=== PATIENT | male | born 1975 | race Caucasian/White ===

== ENCOUNTER 2016-12-16 10:31 | Day surgery (SDC) | payer OTHER ==
[~2016-12-16] VITALS: Ht 182.9 cm; Wt 96.7 kg
[2016-12-16] MEDS ORDERED: IOHEXOL 350 MG/ML 100 ML (OMNIPAQUE 350) VIAL IV ONE (11:15)
[2016-12-16] MEDS ORDERED: NS 100 ML (IVPB) BAG IV ONE (11:15)
[2016-12-16] MEDS ORDERED: CATHETER FLUSH 10 ML SYR IV PRN (11:15)
--- NOTE | 2016-12-16 12:11 | Diagnostic Imaging Report ---
PROCEDURE: CT abdomen and pelvis without contrast. TECHNIQUE: Multiple contiguous axial images were obtained through the abdomen and pelvis without the use of intravenous contrast. INDICATION: Right lower quadrant pain, nausea, and vomiting. 100 mL of Omnipaque 350 was administered intravenously. FINDINGS: The lung bases appear clear. In the anterior aspect of the left hepatic lobe there is a 1.5-cm indeterminate hypodense lesion. A focal area of hypodensity near the falciform ligament is probably focal fatty infiltration. No other hepatic lesion seen. No calcified gallstone. The spleen is mildly enlarged measuring 14.4 x 5.8 x 13.2 cm. The pancreas and the left adrenal gland appear unremarkable. The right adrenal gland demonstrates an indeterminate 9-mm nodule. The kidneys have bilateral low-attenuation lesions mostly less than 1 cm in size. The dominant lesion measuring 1.6 cm in the upper pole of the left kidney is seen. No hydronephrosis or focal lesion. The abdominal aorta is normal in caliber. No para-aortic significantly enlarged lymph node is seen. The appendix is thickened with inflammation around it seen and minimal amount of free fluid compatible with appendicitis. There is no abscess. No evidence of perforation. No free air. There is a tiny fat-containing umbilical hernia. The urinary bladder appears unremarkable. There are scattered diverticula in the sigmoid colon. No diverticulitis. The osseous structures appear grossly unremarkable. IMPRESSION: 1. Acute appendicitis with no abscess. 2. A 1.5-cm indeterminate hypodense nodule in the anterior aspect of the left hepatic lobe. Followup liver mass protocol MRI of the abdomen is recommended for further evaluation after the patient recovers from the current acute abdomen. 3. Tiny fat-containing umbilical hernia. 4. Hypodense lesions mostly too small to characterize within the kidneys are from seen bilaterally. There is also a 9-mm right adrenal nodule too small to characterize. 5. Mild splenomegaly. CRITICAL FINDINGS of appendicitis were discussed with Dyllan, the nurse working with CAROLIN East, by Dr. Ferrell at the time of dictation. Dictated by: Dictated on workstation # [id number]
[2016-12-16 12:30] VITALS: BP 111/83
[2016-12-16] MEDS ORDERED: BUP/EPI 0.25% 1:200,000 (MARCAINE) 30 ML VIAL ONE (13:46)
[2016-12-16 14:24] LABS: BASOPHILS % (AUTO) 1 % (0-10); EOSINOPHILS # (AUTO) 0.1 10^3/uL (0.0-0.3); EOSINOPHILS % (AUTO) 1 % (0-10); LYMPHOCYTES % (AUTO) 13 % (12-44); MEAN CORPUSCULAR HEMOGLOBIN 31 PG (25-34); MEAN CORPUSCULAR HGB CONC 36 G/DL (32-36); MEAN CORPUSCULAR VOLUME 85 FL (80-99); MEAN PLATELET VOLUME 10.5 FL (7.4-10.4); MONOCYTES # (AUTO) 0.8 X 10^3 (0.0-1.0); MONOCYTES % (AUTO) 9 % (0-12); NEUTROPHILS # (AUTO) 6.3 X 10^3 (1.8-7.8); NEUTROPHILS % (AUTO) 77 % (42-75); PLATELET COUNT 175 10^3/uL (130-400); RED BLOOD COUNT 5.44 10^6/uL (4.35-5.85); RED CELL DISTRIBUTION WIDTH 12.8 % (10.0-14.5); WHITE BLOOD COUNT 8.2 10^3/uL (4.3-11.0)
--- NOTE | 2016-12-16 14:26 | Progress Note-Pre Operative ---
Pre-Operative Progress Note H&P Reviewed The H&P was reviewed, patient examined and no changes noted. Date H&P Reviewed: December 16, 2016 Time H&P Reviewed: 14:26 Pre-Operative Diagnosis: acute appendicitis NOREEN SURESH MD December 16, 2016 2:26 pm
[2016-12-16] MEDS ORDERED: ROCURONIUM 50 MG/5 ML (ZEMURON) VIAL IV ONE (14:29)
[2016-12-16] MEDS ORDERED: ONDANSETRON 4 MG/2 ML (SDV) Z0FRAN ONE ×2 (14:29→15:16)
[2016-12-16] MEDS ORDERED: SEVOFLURANE (ULTANE) 15 ML INHAL SOLN ONE (14:29)
[2016-12-16] MEDS ORDERED: fentaNYL INJECTION 100 MCG/2 ML AMP ONE ×2 (14:29→15:07)
[2016-12-16] MEDS ORDERED: MIDAZOLAM 2 MG/2 ML (VERSED) VIAL ONE (14:29)
[2016-12-16] MEDS ORDERED: LIDOCAINE PF 2% 10 ML (XYLOCAINE) AMP ONE (14:29)
[2016-12-16] MEDS ORDERED: DEXAMETHASONE PF 10 MG/ML (DECADRON) VIAL ONE (14:29)
[2016-12-16] MEDS ORDERED: LACTATED RINGERS 1,000 ML IV ONE ×2 (14:29→15:20)
[2016-12-16] MEDS ORDERED: proPOfol 200 MG/20 ML (DIPRIVAN) VIAL IV ONE (14:29)
--- NOTE | 2016-12-16 14:35 | History & Physicial ---
History of Present Illness History of Present Illness Reason for visit/HPI RLQ pain for 36 hours.CT-Appendicitis Date of Admission December 16, 2016 at 12:21 pm I consulted on this patient on 12/16/16 14:32 Attending Physician Patrice Jensen MD Admitting Physician Tammy Rosario DO Consult Allergies and Home Medications Allergies Coded Allergies: No Known Allergies (Verified Allergy, Unknown, 12/16/16) Past Xpwmpdf-Xqycel-Bbpxsm Hx Patient Social History Marrital Status: Employed/Student: employed Alcohol Use: Occasionally Uses Recreational Drug Use: Yes Drug of Choice: marijuana Smoking Status: Current Someday Smoker Type Used: Cigarettes Physical Abuse Screen: No Sexual Abuse: No Recent Foreign Travel: No Contact w/other who traveled: No Recent Hopitalizations: No Recent Infectious Disease Expo: No Seasonal Allergies Seasonal Allergies: Yes Constitutional: malaise EENTM: no symptoms reported Respiratory: no symptoms reported Cardiovascular: no symptoms reported Gastrointestinal: abdominal pain (RLQ), loss of appetite Genitourinary: no symptoms reported Musculoskeletal: no symptoms reported Skin: no symptoms reported Psychiatric/Neurological: No Symptoms Reported Physical Exam Vital Signs Vital Sign - Last 12Hours 12/16/16 12:30 Temp 98.0 Pulse 98 Resp 20 B/P (MAP) 111/83 Pulse Ox 99 Capillary Refill : General Appearance: No Apparent Distress HEENT: Normal ENT Inspection Neck: Normal Inspection Respiratory: Lungs Clear Cardiovascular: Regular Rate, Rhythm Gastrointestinal: Soft, Tenderness Neurologic/Psychiatric: Oriented x3 Skin: Warm/Dry Comments Tender RLQ Assessment/Plan Assessment and Plan Acute appendicitis- For lap appendectomy Problems: Clinical Quality Measures DVT/VTE Risk/Contraindication: Risk Factor Score Per Nursin RFS Level Per Nursing on Admit: 2=Moderate NOREEN SURESH MD December 16, 2016 2:35 pm
[2016-12-16] MEDS ORDERED: LACTATED RINGERS 1,000 ML IV PRN (14:39)
[2016-12-16 14:44] LABS: ALANINE AMINOTRANSFERASE 23 U/L (0-55); ALBUMIN 4.3 G/DL (3.2-4.5); ANION GAP 11 MMOL/L (5-14); ASPARTATE AMINO TRANSFERASE 15 U/L (5-34); BILIRUBIN,TOTAL 0.6 MG/DL (0.1-1.0); BLOOD UREA NITROGEN 15 MG/DL (7-18); BUN/CREATININE RATIO 17; CARBON DIOXIDE 24 MMOL/L (21-32); CHLORIDE 101 MMOL/L (98-107); GFR ESTIMATED > 60; GLUCOSE 105 MG/DL (70-105); SODIUM 136 MMOL/L (135-145); TOTAL PROTEIN 7.4 G/DL (6.4-8.2)
[2016-12-16] MEDS ORDERED: ceFAZolin 2 GM/50 ML NS 50 ML IV ONE (14:45)
[2016-12-16] MEDS ORDERED: metroNIDAZOLE 500MG/100ML IVPB 100 ML IV ONE (14:45)
[2016-12-16] MEDS ORDERED: metroNIDAZOLE 500MG/100ML IVPB 100 ML ONE (14:51)
[2016-12-16] MEDS ORDERED: ceFAZolin 1,000 MG (ANCEF) VIAL ONE (14:51)
[2016-12-16] MEDS ORDERED: HYDROmorphone (DILAUDID) 2 MG/ML VIAL ONE (15:16)
[2016-12-16] MEDS ORDERED: GLYCOPYRROLATE 0.2 MG/ML (ROBINUL) 2 ML VIAL ONE (15:16)
[2016-12-16] MEDS ORDERED: morphine INJ 10 MG/ML 1ML (SYR OR VIAL) ONE (15:16)
[2016-12-16] MEDS ORDERED: NEOSTIGMINE (BLOXIVERZ ) 1 MG/1ML 10 ML VIAL ONE (15:16)
[2016-12-16] MEDS ORDERED: MEPERIDINE (DEMEROL) INJ 50 MG/ML ONE (15:17)
--- NOTE | 2016-12-16 15:28 | Progress Note-Post Operative ---
Post-Operative Progess Note Surgeon (s)/Pressfitter (s) Surgeon NOREEN SURESH MD Pressfitter: n/a Pre-Operative Diagnosis acute appendicitis Post-Operative Diagnosis SAME Procedure & Operative Findings Date of Procedure 12/16/16 Procedure Preformed/Findings laparoscopic appendectomy Anesthesia Type Gen. Estimated Blood Loss Estimated blood loss (mL): minimal Specimens/Packing Specimens Removed Appendix Packing: none NOREEN SURESH MD December 16, 2016 3:28 pm
[2016-12-16] MEDS ORDERED: KETOROLAC 30 MG/ML VIAL ONE (15:29)
[2016-12-16] MEDS ORDERED: ONDANSETRON 4 MG/2 ML (SDV) Z0FRAN IV PRN (15:30)
[2016-12-16] MEDS ORDERED: HYDR-3812 PO (15:33)
--- NOTE | 2016-12-16 15:34 | Discharge Inst-Simple/Standard ---
Discharge Inst-Standard Discharge Medications New, Converted or Re-Newed RX: RX on Chart Patient Instructions/Follow Up Plan of Care/Instructions/FU: dressings off in a.m. Incision is from a tree. Follow-up in 2 weeks Activity as Tolerated: No Goal: off work for 1 week. Please provider a note for work excuse Discharge Diet: No Restrictions NOREEN SURESH MD December 16, 2016 3:34 pm
[2016-12-16] MEDS ORDERED: MEPERIDINE (DEMEROL) INJ 50 MG/ML IVP PRN (15:45)
[2016-12-16] MEDS ORDERED: ONDANSETRON 4 MG/2 ML (SDV) Z0FRAN IVP PRN (15:45)
[2016-12-16] MEDS ORDERED: morphine INJ 10 MG/ML 1ML (SYR OR VIAL) IVP PRN (15:45)
[2016-12-16] MEDS ORDERED: HYDROmorphone (DILAUDID) 2 MG/ML VIAL IVP PRN (15:45)
[2016-12-16] MEDS ORDERED: fentaNYL INJECTION 100 MCG/2 ML AMP IVP PRN (15:45)
[2016-12-16 16:30] VITALS: BP 132/90
[2016-12-16] MEDS ORDERED: LISI10TA2 PO (16:43)
[2016-12-16] MEDS: HYDROcodone/APAP 5 MG/325 MG (LORTAB) TAB PO PRN ×2 (16:48→17:04)
[2016-12-16] MEDS: LACTATED RINGERS 1,000 ML IV SCH (17:10)
[2016-12-16] MEDS: fentaNYL INJECTION 100 MCG/2 ML AMP IV PRN ×2 (21:06→22:11)
[2016-12-16] MEDS ORDERED: ceFAZolin INJECTION 1,000 MG in NS (IVPB) 50 ML IV SCH (21:30)
[2016-12-16] MEDS: ceFAZolin 2 GM/NS 50 ML IVPB IV SCH (21:35)
[2016-12-16] MEDS: metroNIDAZOLE 500MG/100ML IVPB 100 ML IV SCH (22:11)
[2016-12-16 23:50] VITALS: BP 130/75
[2016-12-17] MEDS: LACTATED RINGERS 1,000 ML IV SCH (00:11)
[2016-12-17] MEDS: fentaNYL INJECTION 100 MCG/2 ML AMP IV PRN ×2 (02:32→08:46)
[2016-12-17 03:50] VITALS: BP 116/67
[2016-12-17] MEDS: metroNIDAZOLE 500MG/100ML IVPB 100 ML IV SCH (04:59)
[2016-12-17] MEDS: ceFAZolin 2 GM/NS 50 ML IVPB IV SCH (05:00)
[2016-12-17] MEDS ORDERED: KETOROLAC 15 MG/ML VIAL IV SCH (06:00)
--- NOTE | 2016-12-17 07:47 | OPERATIVE REPORT ---
DATE OF SERVICE: 12/16/2016 PREOPERATIVE DIAGNOSIS: Acute appendicitis. PREOPERATIVE DIAGNOSIS: Acute appendicitis. OPERATION: Laparoscopic appendectomy. SURGEON: Noreen Suresh M.D. ANESTHESIA: General anesthesia. BLOOD LOSS: Minimal. FLUIDS: 1 liter of crystalloid. TYPE OF WOUND: Type 3 (contaminated wound) INDICATION FOR PROCEDURE: This gentleman presented with 3-4 weeks' history of pain over the right lower quadrant with exacerbation of his symptoms over a 36-hour period. CT scan showed retrocecal appendicitis. He was therefore offered prompt laparoscopic appendectomy. Informed consent was obtained after reviewing the operative details and complications of wound infection and delayed intraabdominal abscess. DESCRIPTION OF PROCEDURE: He was placed supine on the operating room table and the general anesthesia induced using an endotracheal tube. 2 g of Ancef and 500 mg of Flagyl were administered intravenously as prophylaxis against wound infection. Sequential compression devices were placed around the legs, to minimize the risk of venous thrombus. Abdomen was prepared and draped in the usual sterile manner. A supraumbilical incision was made and the linea alba incised vertically. A Rosenbaum cannula was placed using carbon dioxide insufflated to an intraabdominal pressure of 15 mmHg. Anatomy was visualized using a 30-degree laparoscope. An inflamed and turgid appendix surrounded by a phlegmon, adherent to the sigmoid colon was encountered. Under direct view, I placed a 5 mm trocar over the right upper quadrant, followed by a 12 mm trocar over the left lower quadrant. The patient was then turned in steep Trendelenburg position with the right side tilted up. Appendix was gently grasped with a pair of atraumatic forceps and sigmoid colon using harmonic scalpel, without any iatrogenic injury. Ileocecal junction was mobilized using the same device as well. Mesoappendix was rather thick due to inflammation and was controlled using the harmonic scalpel. The base of the appendix was then transected, flush with the cecum, using an Endo-ANYI vascular stapler. Hemostasis along the staple line was satisfactory. The area was then irrigated with saline and the appendix was placed in an EndoCatch bag, to be removed via the supraumbilical trocar site. Subsequently, linea alba was closed using #1 Vicryl and skin using 4-0 Vicryl, in a subcuticular fashion. Marcaine 0.25% with epinephrine was infiltrated along the incisions, both preemptively and at the conclusion of the operation. He tolerated the procedure well, was extubated in the operating room and taken to the recovery room in stable condition. Keller, sponges and instrument were correct at the end of the operation. Job ID: [id number] DocumentID: [id number] Dictated Date: 12/16/2016 15:24:27 Event Specialist Food Demonstrator Date: 12/17/2016 06:28:26 Dictated By: NOREEN SURESH MD MTDD
[2016-12-17 07:55] VITALS: BP 116/77
--- NOTE | 2016-12-17 10:14 | Progress Note-Standard ---
Standard Progress Note Progress Notes/Assess & Plan Progress/Assessment & Plan 12/17/16: Doing well.Home Final Diagnosis Acute appendicitis NOREEN SURESH MD December 17, 2016 10:14 am
--- NOTE | 2016-12-17 11:38 | Anesthesia-General Post-Op ---
General Patient Condition Mental Status/LOC: Same as Preop Cardiovascular: Satisfactory Nausea/Vomiting: Absent Respiratory: Satisfactory Pain: Controlled Complications: Absent Post Op Complications Complications None Follow Up Care/Instructions Patient Instructions None needed. Anesthesia/Patient Condition Patient Condition Patient is doing well, no complaints, stable vital signs, no apparent adverse anesthesia problems. No complications reported per nursing. ZELDA CHAMORRO CRNA December 17, 2016 11:38
== END 2016-12-17 10:05 | disposition home or self-care (01) ==
LOC: SDC 10:31 → 4TH 10:31 → RAD 10:31 → EDSTATUS 11:00 → UNDOADMOB 12:21 → 4TH 12:21 → ENPENDDIS 12-17 10:00 → UNDODISOB 12-17 10:05 → SDC 12-17 10:05
PROVIDERS: ATTEND Surgery
DX: K35.80 Unspecified acute appendicitis (principal); F17.210 Nicotine dependence, cigarettes, uncomplicated; I10 Essential (primary) hypertension; Z79.899 Other long term (current) drug therapy
CPT/HCPCS: 36415; 74177; 80053; 85025; 87081; 94664